=== PATIENT | female | born 1935 | race Caucasian/White ===

== ENCOUNTER → 2016-09-21 | Outpatient (CLI) | payer OTHER ==
[~2016-09-21] MED LIST: ASPIRIN81 M2 PO; BENADRYL ITCH28.3 G2 TP; BENADRYL25 M3 PO; CELEXA20 MG PO; CENTRUM SILVER PO; MEDROL4 MG/DOSE- PO; NAPROXEN PO; OMEPRAZOLE40 M1 PO; OSTEO BI-FLEX1 EAC1 PO; PRAVASTATIN SOD40 MG PO; RANITIDINE HCL150 M1 PO; VALSARTAN320 MG PO
--- NOTE | ~2016-09-21 | MR18 ---
[facility] A Service of [facility] RADIOLOGY TEXT RESULTS PATIENT: AL DAWN [facility] UNIT #: [id number] AGE: [address]: Kemal Leroy MD SEX: F ORDER DR: [id number] [facility]. [place], [place] [address] [id number] O MR#: [id number] Acc #: [id number] NAME: AL DAWN : 1935 SEX: F STUDY DATE/TIME: 09/21/2016 8:11 UNIT: [facility] ROOM: STUDY DESCRIPTION: MR Brain Wo Contrast Attending Physician: Kemal Leroy M.D. Ordering Physician: Kemal Leroy M.D. Primary Care Physician: Kemal Leroy M.D. MRI CENTER REPORT This report is preliminary unless electronic signature is present. EXAM MRI brain without contrast. INDICATION Atypical headache. Vertigo. Left-sided temporal pain. 4 falls in the past 6 months. Bilateral tremor. TECHNIQUE Multiplanar MRI of the brain without contrast. COMPARISON None available. FINDINGS The midline structures and craniocervical junction are within normal limits. Powell-white matter differentiation is normal. There is mild global cerebral atrophy. There is no acute intracranial ischemia or acute intracranial hemorrhage. The ventricles and basilar cisterns are normal in size and configuration. No extraaxial collections are identified. Vascular flow voids are within normal limits. There is some mucosal thickening in the maxillary sinuses as well as an air-fluid level in the left maxillary sinus. Please correlate for any evidence of acute sinusitis. There is minimal right mastoid effusion. Orbits are unremarkable. IMPRESSION 1. No acute intracranial findings. 2. Mild global cerebral atrophy. 3. Mucosal thickening within the paranasal sinuses and an air-fluid level in the left maxillary sinus. Please correlate for any evidence of an acute sinusitis. [facility] A Service of [facility] RADIOLOGY TEXT RESULTS PATIENT: AL DAWN [facility] UNIT #: [id number] AGE: [address]: Kemal Leroy MD SEX: F ORDER DR: 4. Trace right mastoid effusion. Dictated by... Benji Reid M.D. THIS IS AN ELECTRONICALLY VERIFIED REPORT Benji Reid M.D. at 09/22/2016 10:58 AM NICOLAS/kiera TD: 09/22/2016 10:44 JOB #: [id number] MRI CENTER REPORT COPY
== END | disposition home or self-care (01) ==
LOC: CMRI 07:36
DX: R51 Headache (principal); R42 Dizziness and giddiness; G31.9 Degenerative disease of nervous system, unspecified; J34.89 Other specified disorders of nose and nasal sinuses
CPT/HCPCS: 70551

== ENCOUNTER → 2016-11-16 | Outpatient (CLI) | payer OTHER ==
--- NOTE | ~2016-11-16 | MY11 ---
[facility] A Service of [facility] RADIOLOGY TEXT RESULTS PATIENT: AL DAWN LOCATION: [facility] : 37 UNIT #: [id number] AGE: [address]: Kemal Leroy MD SEX: F ORDER DR: [id number] [facility] [address] [place], [place] [address] [id number] O MR#: [id number] Acc #: [id number] NAME: AL DAWN : 1935 SEX: F STUDY DATE/TIME: 11/16/2016 11:34 UNIT: [facility] ROOM: STUDY DESCRIPTION: MY Mammogram Screening Dig Jay Attending Physician: Kemal Leroy M.D. Ordering Physician: Kemal Leroy M.D. Primary Care Physician: Kemal Leroy M.D. MEDICAL IMAGING REPORT This report is preliminary unless electronic signature is present EXAM Bilateral digital screening mammogram with CAD 11/16/2016 INDICATIONS 81-year-old female for routine screening. No reported problems and no personal history of breast cancer. Family history positive in the patient's mother, age not specified. No prior surgeries. TECHNIQUE CC and MLO views of the breasts were obtained and reviewed with an FDA-approved CAD device. COMPARISON 11/11/2015, 11/07/2014, 10/23/2013. FINDINGS Breast parenchyma is composed of scattered fibroglandular densities, and the pattern is unchanged. There is no new dominant nodule, mass or suspicious cluster of microcalcifications. Benign calcifications are present. IMPRESSION Benign screening mammogram; 1-year followup recommended. Patients over the age of 40 are entered into a reminder system with target due date for the next mammogram. A result letter will also be sent to the patient. BIRADS: 2 Benign finding. Dictated by... Luther Rae M.D. [facility] A Service of [facility] RADIOLOGY TEXT RESULTS PATIENT: AL DAWN LOCATION: [facility] : 37 UNIT #: [id number] AGE: [address]: Kemal Leroy MD SEX: F ORDER DR: THIS IS AN ELECTRONICALLY VERIFIED REPORT Luther Rae M.D. at 11/17/2016 5:35 PM CHAVO/shamika TD: 11/16/2016 15:37 JOB #: [id number] MEDICAL IMAGING REPORT Page 1 of 1 COPY
== END | disposition home or self-care (01) ==
LOC: CWCC 11:05
DX: Z12.31 Encounter for screening mammogram for malignant neoplasm of breast (principal); Z80.3 Family history of malignant neoplasm of breast
CPT/HCPCS: G0202